=== PATIENT | male | born 1940 | race Caucasian/White ===

== ENCOUNTER 2018-07-02 10:37 | Outpatient (CLI) | payer MEDICARE ==
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
== END 2018-07-02 10:38 | disposition home or self-care (01) ==
LOC: MADRAD 10:37
PROVIDERS: ATTEND Physician Assistant
DX: S22.49XA Multiple fractures of ribs, unspecified side, initial encounter for closed fracture (principal)
CPT/HCPCS: 71046

== ENCOUNTER 2024-01-08 17:43 | Emergency (ER) | payer MEDICARE, OTHER ==
[2024-01-08] MEDS ORDERED: Acetaminophen 500 MG TAB ONE (18:02)
== END 2024-01-08 18:08 | disposition home or self-care (01) ==
LOC: MADERS 17:43
DX: T63.461A Toxic effect of venom of wasps, accidental (unintentional), initial encounter (principal)
CPT/HCPCS: 99282

== ENCOUNTER 2025-04-06 10:10 | Emergency (ER) | payer MEDICARE ==
[2025-04-06 11:01] LABS: #Basophils 0.1 thou/uL (0.0-0.2); #Eosinophils 0.2 thou/uL (0.0-0.7); #Lymphocytes 1.5 thou/uL (1.20-3.40); #Monocytes 0.4 thou/uL (0.11-0.59); #Neutrophils 2.8 thou/uL (1.40-6.50); %Basophils 1.7 % (0.0-1.0); %Eosinophils 4.1 % (0.0-10.0); %Lymphocytes 30.0 % (21.0-51.0); %Monocytes 8.5 % (0.0-10.0); %Neutrophils 55.8 % (42.0-75.0); Hematocrit 43.0 % (42.0-52.0); Hemoglobin 13.7 g/dL (14.0-18.0); Mean Corpuscular Hemoglobin 28.2 pg (27.0-31.0); Mean Corpuscular Volume 88.7 fl (78.0-98.0); Platelet Count 218 10x3/uL (130-400); Red Blood Cell (RBC) Count 4.85 mill/uL (4.70-6.10); White Blood Cell (WBC) Count 5.1 10x3/uL (4.8-10.8)
[2025-04-06 11:10] LABS: INR-International Normal Ratio 1.2; PTT 30.7 sec (22.9-36.1); Prothrombin Time 14.9 sec (12.0-14.7)
[2025-04-06 11:24] LABS: ALT (SGPT) 20 U/L (Less than 45); AST (SGOT) 25 U/L (11-34); Albumin 4.0 g/dL (3.1-4.5); Alkaline Phosphatase 88 U/L (40-110); Anion Gap 14 mmol/L (10-20); BUN (Urea Nitrogen) 22 mg/dL (8.4-25.7); Bilirubin, Total 0.4 mg/dL (0.3-1.2); Calc. Creatinine Clearance 0 mL/min (70-130); Calcium 9.4 mg/dL (7.8-10.44); Carbon Dioxide 24 mmol/L (23-31); Chloride 104 mmol/L (98-107); Globulin 3.6 g/dL (2.4-3.5); Glucose 99 mg/dL (83-110); Potassium 4.1 mmol/L (3.5-5.1); Sodium 138 mmol/L (136-145)
[2025-04-06 11:25] LABS: Troponin I Less than 0.010 ng/mL (< 0.028)
[2025-04-06] MEDS ORDERED: Aspirin Chewable 81 MG TAB ONE (11:35)
== END 2025-04-06 17:25 | disposition short-term general hospital (02) ==
LOC: MADERS 10:10
DX: I63.9 Cerebral infarction, unspecified (principal); I48.91 Unspecified atrial fibrillation; R29.703 NIHSS score 3
CPT/HCPCS: 70450; 71045; 80053; 84484; 85025; 85610; 85730; 93005; 94760

== ENCOUNTER 2025-04-30 15:01 | Emergency (ER) | payer MEDICARE, OTHER ==
[2025-04-30] MEDS ORDERED: Acetaminophen 500 MG TAB ONE (15:39)
[2025-04-30] MEDS ORDERED: Lidocaine 1% PF 5 ML VIAL ONE (15:39)
[2025-04-30] MEDS ORDERED: Lidocaine 1% (PF) 30 ML VIAL ONE (15:42)
== END 2025-04-30 16:35 | disposition home or self-care (01) ==
LOC: MADERS 15:01
DX: S61.412A Laceration without foreign body of left hand, initial encounter (principal); S61.411A Laceration without foreign body of right hand, initial encounter; S50.312A Abrasion of left elbow, initial encounter; I48.91 Unspecified atrial fibrillation; I10 Essential (primary) hypertension; Z86.73 Personal history of transient ischemic attack (TIA), and cerebral infarction without residual deficits; Z23 Encounter for immunization; V43.93XA Unspecified car occupant injured in collision with pick-up truck in traffic accident, initial encounter
CPT/HCPCS: 12002; 70450; 72125; 90471; 90715; J2003